=== PATIENT | female | born 2005 | race Caucasian/White ===

== ENCOUNTER → 2023-12-28 | Outpatient (CLI) | payer BC, SELFPAY ==
[2023-12-28 15:51] LABS: Syphilis Antibodies Non-reactive
== END | disposition home or self-care (01) ==
PROVIDERS: PCP Family Medicine; Referring Provider Physician Assistant Medical; Visit Provider Physician Assistant Medical
DX: L08.9 Local infection of the skin and subcutaneous tissue, unspecified (principal)
CPT/HCPCS: 36415; 86780